=== PATIENT | male | born 1955 | race African-American/Black ===

== ENCOUNTER 2023-06-25 16:55 | Emergency (ER) | payer SELFPAY ==
[~2023-06-25] VITALS: Ht 185.4 cm; Wt 90.9 kg
[2023-06-25] MEDS ORDERED: CLON1PAT12 TD (17:32)
[2023-06-25] MEDS ORDERED: ASPI81TA39 PO (17:32)
[2023-06-25] MEDS ORDERED: GABA-1181 PO (17:32)
[2023-06-25] MEDS ORDERED: LORA-1001 PO (17:32)
[2023-06-25] MEDS ORDERED: LISI-663 PO (17:32)
[2023-06-25] MEDS ORDERED: TERA5CAP PO (17:32)
[2023-06-25] MEDS ORDERED: SPIR-37 PO (17:32)
[2023-06-25] MEDS ORDERED: ATOR20TA65 PO (17:32)
[2023-06-25] MEDS ORDERED: TRAZ-184 PO (17:32)
[2023-06-25] MEDS ORDERED: HYDR25TA PO (17:32)
[2023-06-25] MEDS ORDERED: METF750T57 PO (17:32)
[2023-06-25] MEDS ORDERED: AMLO10TA55 PO (17:32)
[2023-06-25 20:27] LABS: BASOPHILS % (AUTO) 0.5 % (0.0-2.0); HEMATOCRIT 39.5 % (41-53); HEMOGLOBIN 13.1 g/dL (13.5-17.5); LYMPHOCYTES # (AUTO) 2.1 K/uL (1.0-4.8); LYMPHOCYTES % (AUTO) 29.2 % (22.0-44.0); MEAN CORPUSCULAR HEMOGLOBIN 29.1 pg (26.0-34.0); MEAN CORPUSCULAR VOLUME 88 fL (80-100); MONOCYTES # (AUTO) 0.7 K/uL (0.1-1.0); MONOCYTES % (AUTO) 9.5 % (2.0-9.0); NEUTROPHILS # (AUTO) 4.1 K/uL (1.8-7.7); NEUTROPHILS % (AUTO) 58.8 % (40.0-70.0); PLATELET COUNT (AUTO) 250 K/uL (150-450); RED BLOOD CELL COUNT(AUTO) 4.49 MIL/uL (4.50-5.90); RED CELL DISTRIBUTION WIDTH 15.5 % (11.5-14.5)
[2023-06-25 20:35] LABS: ANION GAP 4 mmol/L (8-16); CARBON DIOXIDE 29 mmol/L (22-29); CHLORIDE 106 mmol/L (98-107); CREATININE 1.05 mg/dL (0.60-1.30); GLOMERULAR FILTR. RATE CALC > 60 mL/min (>60); GLUCOSE,RANDOM 108 mg/dL (70-110); POTASSIUM 4.1 mmol/L (3.5-5.1); SODIUM SERUM 139 mmol/L (136-145)
[2023-06-25 20:43] LABS: ALANINE AMINOTRANSFERASE 25 U/L (12-78); ALBUMIN 3.7 g/dL (3.4-5.0); ALKALINE PHOSPHATASE 82 U/L (46-116); ASPARTATE AMINOTRANSFERASE 19 U/L (15-37); BILIRUBIN,TOTAL 0.2 mg/dL (0.1-1.0); TOTAL PROTEIN, SERUM 6.9 g/dL (6.4-8.2)
[2023-06-25] MEDS ORDERED: SODIUM CHLORIDE 0.9% 1,000 ML IV ONE (21:15)
[2023-06-25 21:17] LABS: APPEARANCE,URINE CLEAR (CLEAR); BILIRUBIN,URINE NEGATIVE (NEGATIVE); GLUCOSE, URINE (UA) NEGATIVE (NEGATIVE); KETONES,URINE NEGATIVE (NEGATIVE); LEUKOCYTE ESTERASE ,URINE NEGATIVE (NEGATIVE); NITRATE,URINE NEGATIVE (NEGATIVE); OCCULT BLOOD,URINE NEGATIVE (NEGATIVE); PROTEIN,URINE NEGATIVE (NEGATIVE); SPECIFIC GRAVITIY, URINE 1.019 (1.003-1.030); UROBILINOGEN,URINE <=1.0 mg/dL (<=1.0)
[2023-06-25 21:32] LABS: PROTHROMBIN TIME 10.5 SEC (9.4-11.6)
[2023-06-25] MEDS ORDERED: MECLIZINE HCL 25 MG TABLET PO ONE (22:45)
[2023-06-26] MEDS ORDERED: MECL-134 PO (00:05)
[2023-06-26 01:04] VITALS: BP 124/69; PULSE 71; RESP 18; TEMP 97.3
[2023-06-28] MEDS ORDERED: MECL-134 PO (12:52)
== END 2023-06-26 01:04 | disposition home or self-care (01) ==
LOC: EMS 17:01
DX: H81.10 Benign paroxysmal vertigo, unspecified ear (principal); Z88.5 Allergy status to narcotic agent; Z88.6 Allergy status to analgesic agent
CPT/HCPCS: 70450; 71045; 80053; 81003; 83880; 84484; 85025; 85610; 85730; 93005; 99285; 36415-L1; 36415-TC